=== PATIENT | female | born 1960 | race Caucasian/White ===

== ENCOUNTER → 2017-04-05 | Outpatient (CLI) | payer BC ==
[~2017-04-05] MED LIST: BACTRIM DS 8001 TAB PO; HYDROCODONE/APAP; NO HOME MEDICATIONS; VICODIN 5/5001 UDTAB PO; [UNRECOGNIZED DRUG - REMARK]
== END ==
LOC: MC.RAD 17:00
DX: Z12.31 Encounter for screening mammogram for malignant neoplasm of breast (principal)

== ENCOUNTER → 2018-05-03 | Outpatient (CLI) | payer BC | LOC: MC.RAD 14:40 | DX: Z12.31 Encounter for screening mammogram for malignant neoplasm of breast (principal) ==

== ENCOUNTER → 2019-06-05 | Outpatient (CLI) | payer BC | LOC: MC.RAD 16:30 | DX: Z12.31 Encounter for screening mammogram for malignant neoplasm of breast (principal) ==

== ENCOUNTER → 2020-06-29 | Outpatient (CLI) | payer BC | LOC: MC.RAD 16:27 | DX: Z12.31 Encounter for screening mammogram for malignant neoplasm of breast (principal) ==

== ENCOUNTER → 2021-08-09 | Outpatient (CLI) | payer BC | LOC: MC.RAD 10:52 | DX: Z12.31 Encounter for screening mammogram for malignant neoplasm of breast (principal) ==